=== PATIENT | female | born 1935 | race African-American/Black ===

== ENCOUNTER 2019-10-30 19:47 | Inpatient (IN) | payer OTHER, MEDICAID ==
[~2019-10-30] VITALS: Ht 152.4 cm; Wt 52.8 kg
[2019-10-30] MEDS ORDERED: SODIUM CHLORIDE 0.9% 1,000 ML IV ONE (21:24)
[2019-10-30 22:52] LABS: BASOPHILS % 0.1 % (0.0-2.0); EOSINOPHILS % 0.1 % (0.0-5.0); HEMATOCRIT. 27.3 % (36.0-48.0); LYMPHOCYTES % 10.3 % (20.0-50.0); MEAN CORPUSCULAR HEMOGLOBIN 29.3 pg (28.0-32.0); MEAN CORPUSCULAR VOLUME 89.2 fL (81.0-99.0); MONOCYTES % 2.9 % (2.0-8.0); NEUTROPHILS % 86.6 % (40.0-76.0); PLATELET 289 x1000/uL (130-400); RED BLOOD CELL COUNT 3.06 mill/uL (4.2-5.4); RED CELL DISTRIBUTION WIDTH 19.1 % (11.6-14.6)
[2019-10-30 22:57] LABS: CHLORIDE 119 mEq/L (98-107)
[2019-10-30 23:00] LABS: INR 1.1; PROTHROMBIN TIME 11.7 sec (9.6-11.0)
[2019-10-31] VITALS (12 sets, daily range): BP systolic 91–130; BP diastolic 48–95
[2019-10-31] MEDS ORDERED: POTASSIUM CHLORIDE 20MEQ TABLET SR PO NR (02:15)
[2019-10-31] MEDS ORDERED: METO25TA6 PO (03:55)
[2019-10-31] MEDS ORDERED: AMLO10TA80 PO (03:55)
[2019-10-31] MEDS ORDERED: FURO40TA5 PO (03:55)
[2019-10-31] MEDS ORDERED: ASPI-1497 PO (03:55)
[2019-10-31] MEDS ORDERED: SIME180C47 PO (03:55)
[2019-10-31] MEDS ORDERED: DIPH1TAB24 PO (03:55)
[2019-10-31] MEDS: DEXT 5%/0.45% NACL 1000ML 1,000 ML IV SCH ×2 (05:35→20:24)
[2019-10-31 06:51] LABS: HEMATOCRIT 31.7 % (36.0-48.0); HEMOGLOBIN 10.7 g/dL (12.0-16.0)
[2019-10-31] MEDS: HYDROCODONE/ACETAMINOPHEN 5/325MG TABLET PO PRN ×2 (07:55→20:46)
[2019-10-31] MEDS: PANTOPRAZOLE SODIUM 40 MG/VIAL IV SCH (07:56)
[2019-10-31] MEDS: METOPROLOL TARTRATE 25MG TABLET PO SCH ×2 (09:00→20:26)
[2019-10-31 12:56] LABS: HEMATOCRIT 30.7 % (36.0-48.0); HEMOGLOBIN 10.3 g/dL (12.0-16.0)
[2019-10-31 13:01] LABS: TOTAL IRON BINDING CAPACITY 309 ug/dL (250-450)
[2019-10-31] MEDS ORDERED: LORAZEPAM 2MG/ML CPJ IV PRN (15:00)
[2019-10-31] MEDS ORDERED: LACTULOSE 20G/30ML UDC PO PRN (15:00)
[2019-10-31] MEDS ORDERED: BISACODYL 10MG SUPP PR PRN (15:00)
[2019-10-31] MEDS ORDERED: LACTULOSE 20G/30ML UDC PO ONE (15:00)
[2019-10-31] MEDS ORDERED: IPRATROPIUM/ALBUTEROL 0.5-3(2.5)MG/3ML NEB HHN PRN (15:00)
[2019-10-31] MEDS ORDERED: HYDRALAZINE 20MG/ML VIAL IV PRN (15:00)
[2019-10-31] MEDS ORDERED: DIPHENHYDRAMINE 50MG/ML VIAL IV PRN (15:00)
[2019-10-31 15:55] LABS: BG BASE EXCESS -1.6 mmol/L (-2.0-2.0); BG CARBOXYHEMOGLOBIN 0.2 % (0.5-1.5); BG DEOXYHEMOGLOBIN 2.7 % (0.0-5.0); BG FRACTION INSPIRED OXYGEN 21; BG HCO3 ACT 22.6 mmol/L (22.0-26.0); BG METHEMOGLOBIN 0.3 % (0.0-1.5); BG OXYGEN SATURATION 97.3 % (92.0-98.5); BG OXYHEMOGLOBIN 96.8 % (94.0-97.0); BG PCO2 36.2 mmHg (35.0-45.0); BG PH 7.414 (7.350-7.450); BG PO2 102.3 mmHg (75.0-100.0); BG SAMPLE SITE RIGHT BRACHIAL; BG TOTAL HEMOGLOBIN 10.2 g/dL (12.0-18.0); BG VENT MODE ROOM AIR
[2019-10-31] MEDS: DOCUSATE SODIUM 100MG CAPSULE PO SCH (17:41)
[2019-10-31 17:54] LABS: HEMATOCRIT 28.6 % (36.0-48.0); HEMOGLOBIN 9.6 g/dL (12.0-16.0)
[2019-10-31 17:59] LABS: CHLORIDE 108 mEq/L (98-107)
[2019-10-31 18:00] LABS: PROTHROMBIN TIME 10.7 sec (9.6-11.0)
[2019-10-31] MEDS: FERROUS SULFATE 325MG TABLET PO SCH (20:25)
[2019-10-31 23:09] LABS: CLARITY URINE CLEAR (CLEAR); COLOR URINE YELLOW (YELLOW); KETONES URINE NEGATIVE (NEGATIVE); LEUKOCYTE ESTERASE URINE 1+ (NEGATIVE); NITRITE URINE NEGATIVE (NEGATIVE); OCCULT BLOOD URINE NEGATIVE (NEGATIVE); PROTEIN URINE NEGATIVE (NEGATIVE); SPECIFIC GRAVITY URINE 1.018 (1.005-1.030)
[2019-11-01] VITALS (12 sets, daily range): BP systolic 92–126; BP diastolic 49–69
[2019-11-01 01:05] LABS: HEMATOCRIT 28.3 % (36.0-48.0); HEMOGLOBIN 9.5 g/dL (12.0-16.0)
[2019-11-01 06:07] LABS: HEMATOCRIT 30.4 % (36.0-48.0); HEMOGLOBIN 10.1 g/dL (12.0-16.0); MEAN CORPUSCULAR VOLUME 87.3 fL (81.0-99.0); PLATELET 399 x1000/uL (130-400); RED BLOOD CELL COUNT 3.48 mill/uL (4.2-5.4)
[2019-11-01] MEDS: DEXT 5%/0.45% NACL 1000ML 1,000 ML IV SCH (06:31)
[2019-11-01] MEDS: FERROUS SULFATE 325MG TABLET PO SCH ×3 (06:33→17:06)
[2019-11-01 06:55] LABS: FERRITIN 42 ng/mL (10-291)
[2019-11-01 07:04] LABS: VITAMIN B12 SERUM 1176 pg/mL (211-911)
[2019-11-01 07:22] LABS: CHLORIDE 108 mEq/L (98-107)
[2019-11-01] MEDS: METOPROLOL TARTRATE 25MG TABLET PO SCH (09:39)
[2019-11-01] MEDS: DOCUSATE SODIUM 100MG CAPSULE PO SCH ×2 (09:40→17:00)
[2019-11-01] MEDS: PANTOPRAZOLE SODIUM 40 MG/VIAL IV SCH (09:40)
[2019-11-01] MEDS ORDERED: POLYETHYLENE GLYCOL 3350 (17GM) 1 DOSE PACK PO SCH (11:00)
[2019-11-01] MEDS: HYDROCODONE/ACETAMINOPHEN 5/325MG TABLET PO PRN (14:16)
[2019-11-01 15:27] LABS: HEMATOCRIT 31.7 % (36.0-48.0); HEMOGLOBIN 10.5 g/dL (12.0-16.0)
[2019-11-01] MEDS ORDERED: PANT40SU MT (16:14)
[2019-11-01] MEDS ORDERED: FERR325T23 MT (16:14)
[2019-11-02 09:08] LABS: FOLATE HEMATOCRIT 30.8 % (34.0-46.6); FOLATE RBC 1279 ng/mL (>498)
== END 2019-11-01 18:04 | disposition home or self-care (01) | DRG 377 ==
LOC: ER 19:47 → 3WST 23:01 → EDBEDREQ 23:14 → EDBEDREQTM 23:14 → ENRESERV 23:23 → 3WST 23:53
PROVIDERS: ADMIT Internal Medicine; ATTEND Internal Medicine
DX: K57.31 Diverticulosis of large intestine without perforation or abscess with bleeding (principal); I50.43 Acute on chronic combined systolic (congestive) and diastolic (congestive) heart failure; M48.54XA Collapsed vertebra, not elsewhere classified, thoracic region, initial encounter for fracture; M48.56XA Collapsed vertebra, not elsewhere classified, lumbar region, initial encounter for fracture; E44.1 Mild protein-calorie malnutrition; D64.9 Anemia, unspecified; M85.88 Other specified disorders of bone density and structure, other site; K21.9 Gastro-esophageal reflux disease without esophagitis; E87.6 Hypokalemia; R53.1 Weakness; J44.9 Chronic obstructive pulmonary disease, unspecified; E88.09 Other disorders of plasma-protein metabolism, not elsewhere classified; K82.8 Other specified diseases of gallbladder; E86.0 Dehydration; E83.51 Hypocalcemia; Z90.49 Acquired absence of other specified parts of digestive tract
CPT/HCPCS: 36415; 36600; 71045; 74176; 80048; 80053; 81003; 82330; 82375; 82607; 82728; 82747; 82805; 83540; 83550; 85014; 85018; 85025; 85027; 85044; 85651; 86850; 86870; 86900; 93005; 93970; 94640; 97162; 99291; C9113; J2060; J7030